=== PATIENT | female | born 1985 | race Caucasian/White ===

== ENCOUNTER 2018-01-16 07:32 | Emergency (ER) | payer OTHER ==
[~2018-01-16] VITALS: Ht 180.3 cm; Wt 77.3 kg
[2018-01-16 07:50] VITALS: BP 107/72
== END 2018-01-16 08:24 | disposition home or self-care (01) ==
LOC: EMS 07:34
DX: K02.9 Dental caries, unspecified (principal)
CPT/HCPCS: 99283